=== PATIENT | female | born 1935 | race Caucasian/White ===

== ENCOUNTER 2016-10-25 23:44 | Emergency (ER) | payer MEDICARE ==
--- NOTE | 2016-10-25 23:45 | NUR ---
UPON BEING PLACED INBED; PT REFUSED TO BE TRIAGED, OBTAIN VS OR DO ANYTHING. STATES "I DONT WANT NO ONE TOUCH OR DO ANYTHING TO ME; CALL MY SON SO I CAN GO HOME". SON CALLED AND ON THE WAY. DR. LARSON NOTIFIED.
--- NOTE | 2016-10-26 00:04 | NUR ---
SON AT BEDSIDE WITH DR. LARSON TALKING TO PT; STILL REFUSES TO BE TOUCHED OR ANYTHING TO BE DONE.
--- NOTE | 2016-10-26 00:10 | NUR ---
SON STATES "I WANNA CALL AN AMBULANCE AND TAKE MY MOTHER OUT SINCE SHE DOESNT WANT TO BE EXAMINED BY THE DOCTOR". PT REFUSES AGAIN TO BE EXAMINED.
--- NOTE | 2016-10-26 00:17 | NUR ---
pt agrees to have VS taken, but continues to refuse any blood draw or CT scans performed and requesting to leave hospital. pt son at bedside continues to argue with pt, requesting pt to agree to physical exam by MD, but pt continues to refuse.
[2016-10-26 00:19] VITALS: BP 142/61
--- NOTE | 2016-10-26 00:25 | NUR ---
PT STILL REFUSES TO BE EXAMINED; STATES "I WANT MY SON TO TAKE ME OUT OF HERE BY AMBULANCE".
--- NOTE | 2016-10-26 00:49 | NUR ---
DR. LARSON AMD MYSELF AT BEDSIDE FOR THE [address] LARSON ASKING TO EXAMINE PT AND SHE STILL SAYS "NO; IF I HAVE TO WALK OUT OF HERE I WILL BUT I DONT WANT YOU TO EXAMINE ME". CAREGIVER AT BEDSIDE.
[2016-11-07] MEDS ORDERED: MAG HYDROX/AL HYDROX/SIMETH 30 ML UDC ONE (09:25)
[2016-11-07] MEDS ORDERED: LIDOCAINE VISCOUS 2% UD 15 ML UDC ONE (09:25)
== END 2016-10-26 00:52 | disposition left against medical advice (07) ==
LOC: ER 23:51
DX: R55 Syncope and collapse (principal)
CPT/HCPCS: A4606; Z7610

== ENCOUNTER 2019-04-23 07:41 | Inpatient (IN) | payer MEDICARE ==
[~2019-04-23] VITALS: Ht 170.2 cm; Wt 73.5 kg
[2019-04-23] VITALS (30 sets, daily range): BP systolic 112–186; BP diastolic 58–97
--- NOTE | 2019-04-23 07:44 | NUR ---
DR JUNIOR AT BEDSIDE FOR EVAL
--- NOTE | 2019-04-23 07:51 | NUR ---
CALLED CODE STROKE PER DR. JUNIOR
--- NOTE | 2019-04-23 07:55 | NUR ---
PT WAS PICKED UP FOR CT
[2019-04-23 07:58] LABS: BASOPHILS # (AUTO) 0.1 /CMM (0.0-0.2); BASOPHILS % (AUTO) 0.4 % (0.0-2.0); EOSINOPHILS % (AUTO) 0.6 % (0.0-6.0); HEMATOCRIT 45 % (33-45); HEMOGLOBIN 15.1 g/dL (11.5-14.8); LYMPHOCYTES # (AUTO) 2.8 /CMM (0.8-4.8); LYMPHOCYTES % (AUTO) 15.5 % (20.0-44.0); MEAN CORPUSCULAR HGB CONC 33 g/dl (31.0-36.0); MEAN CORPUSCULAR VOLUME 94 fL (82-100); MONOCYTES # (AUTO) 0.8 /CMM (0.1-1.30); MONOCYTES % (AUTO) 4.6 % (2.0-12.0); NEUTROPHILS # (AUTO) 14.4 /CMM (1.8-8.9); NEUTROPHILS % (AUTO) 78.9 % (43.0-81.0); PLATELET COUNT (AUTO) 303 /CMM (150-450); RED BLOOD CELL COUNT(AUTO) 4.83 MIL/uL (4.0-5.2); WHITE BLOOD COUNT (AUTO) 18.3 K/uL (4.3-11.0)
--- NOTE | 2019-04-23 08:01 | NUR ---
PATIENT BACK FROM CT
[2019-04-23 08:15] LABS: CALCIUM, SERUM 9.1 mg/dL (8.5-10.1); CARBON DIOXIDE 25 mmol/L (21-32); CHLORIDE 101 mmol/L (98-107); CREATININE 1.2 mg/dL (0.6-1.3); GLUCOSE 212 mg/dL (74-106); POTASSIUM 4.1 mmol/L (3.5-5.1); SODIUM SERUM 134 mmol/L (136-145); UREA NITROGEN, BLOOD 18 mg/dL (7-18)
--- NOTE | 2019-04-23 08:15 | NUR ---
CALLED [facility] [phone]
[2019-04-23 08:19] LABS: ALANINE AMINOTRANSFERASE 26 U/L (12-78); ALBUMIN 3.8 g/dL (3.4-5.0); ALKALINE PHOSPHATASE 110 U/L (46-116); ASPARTATE AMINOTRANSFERASE 20 U/L (15-37); BILIRUBIN,DIRECT 0.1 mg/dL (0.0-0.2); BILIRUBIN,TOTAL 0.3 mg/dL (0.2-1.0); TOTAL PROTEIN, SERUM 8.2 g/dL (6.4-8.2)
--- NOTE | 2019-04-23 08:25 | NUR ---
INTUBATION LEAD BY DR JUNIOR, RT AT BEDSIDE, RN AT BEDSIDE. ETOMIDATE 20MG IVP ALEX 20G SUCCINYL 100MG IPV ALEX 20G Addendum: 04/23/19 at 0925 by ANGELINA INTUBATION LED BY DR JUNIOR, RT AT BEDSIDE, RN AT BEDSIDE. ETOMIDATE 20MG IVP ALEX 20G SUCCINYL 100MG IPV ALEX 20G
--- NOTE | 2019-04-23 08:28 | NUR ---
CALL FROM DR LIPSCOMB: MASSIVE LEFT FRONTAL LOBE HEMORRHAGE AND 2.3 MIDLINE SHIFT
[2019-04-23] MEDS ORDERED: IV MANNITOL 20% 250 ML IV PRN (08:30)
--- NOTE | 2019-04-23 08:30 | NUR ---
RECEIVED VERBAL ORDER OF PROPOFOL 1000ML/100ML IVPB STARTED AT 5MCG/KG/MIN. CARRIED OUT. TITRATEM TO EFFECT
--- NOTE | 2019-04-23 08:32 | NUR ---
CALLED RADIOLOGIST [phone] BACK
--- NOTE | 2019-04-23 08:32 | NUR ---
MESSAGE RELAYED TO DR JUNIOR
[2019-04-23] MEDS ORDERED: PROPOFOL 100 ML ONE (08:33)
[2019-04-23] MEDS ORDERED: NICARDIPINE HCL 20 MG in IV D5W 192 ML IV PRN (09:00)
--- NOTE | 2019-04-23 09:00 | NUR ---
NOTED WITH MODERATE BLOOD TINGED SECRETION
--- NOTE | 2019-04-23 09:12 | NUR ---
COIL REPAIR TECHNICIAN AT BEDSIDE
--- NOTE | 2019-04-23 09:14 | NUR ---
[facility] [phone] EXT [phone]
[2019-04-23 09:15] LABS: CHOLESTEROL 170 mg/dL (<200); HDL CHOLESTEROL 64 mg/dL (40-60); LDL 90 mg/dL (0-99); TRIGLYCERIDES 90 mg/dL (30-150)
[2019-04-23] MEDS ORDERED: LORA0.5T PO (09:27)
[2019-04-23] MEDS ORDERED: LEVO100T9 PO (09:27)
[2019-04-23] MEDS ORDERED: ASPI81TA44 PO (09:27)
[2019-04-23] MEDS ORDERED: HYDR-4076 PO (09:27)
[2019-04-23] MEDS ORDERED: ROSU10TA2 PO (09:27)
[2019-04-23] MEDS ORDERED: LEVE500T20 PO (09:27)
[2019-04-23] MEDS ORDERED: VALS160T2 PO (09:27)
[2019-04-23] MEDS ORDERED: AMLO5TAB9 PO (09:28)
[2019-04-23] MEDS ORDERED: NICARDIPINE IN NACL, ISO-OSM 200 ML IV PRN (09:30)
[2019-04-23] MEDS ORDERED: MOME13HF4 INH (09:33)
--- NOTE | 2019-04-23 09:59 | NUR ---
REPORT GIVEN TO ARPI OF ICU
--- NOTE | 2019-04-23 10:45 | NUR ---
ICU/RN: ADMISSION NOTE RECEIVED REPORT FROM PIERCE, RN. PT TRANSPORTED TO 259 VIA GURNEY. RECEIVED PT INTUBATED 7.0 21 CM AT THE LIP. PT ON VENT SETTINGS ORDERED BY MD. PT COMATOSE, DOES NOT FOLLOW COMMANDS, DOES NOT REACT TO PAINFUL STIMULI. PT ON TELE, SINUS. CURRENTLY NPO. LEFT HAND AND RIGHT FA PIV PATENT AND INTACT. ALL NEEDS WILL BE ATTENDED TO, SAFETY MEASURES TAKEN, BED IN LOW POSITION, SIDE RAILS UP, CALL LIGHT WITHIN REACH. FAMILY AT BEDSIDE. CT SCAN DONE, RESULTS SHOW LARGE INTRACRANIAL BLEED. LAST WELL KNOWN TIME 0430.
[2019-04-23 11:15] LABS: ABG BASE EXCESS -3.2 mmol/L; ABG OXYGEN SATURATION 99.1 % (92.0-98.5); ABG PCO2 29.2 mmHg (35.0-45.0); ABG PH 7.444 (7.350-7.450); ABG PO2 251.7 mmHg (75.0-100.0); AaDO2 432.1 mmHg; COHb 0.4 % (0.5-1.5); MetHb 0.4 % (0.0-1.5); O2Hb 98.3 % (94.0-97.0); PEEP,BG 5 cm H2O; SITE, ABG Left Radial; VT, ABG 500 mL
[2019-04-23] MEDS ORDERED: SUCCINYLCHOLINE CHLORIDE 20 MG/ML VIAL IV ONE (12:49)
[2019-04-23] MEDS ORDERED: MORPHINE SULFATE INJ 2 MG/ML DISP.SYRIN IV PRN (13:00)
[2019-04-23] MEDS ORDERED: BLOOD SUGAR DIAGNOSTIC 1 EACH STRIP IN SCH (13:00)
[2019-04-23] MEDS ORDERED: ONDANSETRON HCL/PF 4 MG/2 ML VIAL IVP PRN (13:00)
--- NOTE | 2019-04-23 15:20 | NUR ---
ICU/RN: REPEAT CT SCAN DONE. DR. RAHMAN AT BEDSIDE. DISCUSSED RESULTS AND PROGNOSIS WITH FAMILY. ALL QUESTIONS ANSWERED. FAMILY SEEMS TO UNDERSTAND THE SEVERITY OF THE DX AND THE POOR PROGNOSIS.
[2019-04-23] MEDS: IV NS 0.9% 1,000 ML IV PRN (15:43)
--- NOTE | 2019-04-23 16:30 | NUR ---
ICU/RN: AT BEDSIDE, PT ASSESSED. NEW ORDERS RECEIVED FOR DECADRON AND MANNITOL. WILL FOLLOW THROUGH. MD DISCUSSED IMAGES AND PROGNOSIS OF PT. QUESTIONS AND CONCERNS ADDRESSED.
[2019-04-23] MEDS: IV MANNITOL 20% 250 ML IV SCH (18:25)
[2019-04-23] MEDS: DEXAMETHASONE SOD PHOSPHATE 4 MG/ML VIAL IV SCH (18:29)
[2019-04-23] MEDS: BLOOD SUGAR DIAGNOSTIC 1 EACH STRIP IN SCH (18:29)
--- NOTE | 2019-04-23 19:27 | NUR ---
ICU/RN: ENDING NOTES,AM BEDSIDE REPORT ENDORSED TO NIGHT NURSE. PT COMATOSE, DOES NOT OPEN EYES, OR FOLLOW COMMANDS. RANDOM MOVEMENTS NOTED. ON VENT SETTINGS ORDERED. PT NPO. UNABLE TO PERFORM SWALLOW EVAL, OT EVAL DUE TO PT MENTAL STATUS. DVT PUMPS IN PLACE. CARE GIVERS AT BEDSIDE. MANNITOL AND IVF INFUSING PER MD ORDER. ALL NEEDS ATTENDED TO, SAFETY MEASURES TAKEN, BED IN LOW POSITION, SIDE RAILS UP, CALL LIGHT WITHIN REACH. FAMILY (3 SONS OF PT) ARE DISCUSSING GOALS OF CARE AND WILL INFORM US.
--- NOTE | 2019-04-23 19:45 | NUR ---
ICU/PACKAGE LINER RECEIVED REPORT FROM DAY SHIFT NURSE. SEE FLOWSHEET FOR ASSESSMENT. THERE IS A SKIN ISSUES THAT THIS PT HAS, WHICH IS ADDRESSED ON FLOWSHEET ALONG WITH THE INTERVENTION. PT IS ORALLY INTUBATED, WHICH SHE IS TOLERATING. PT WAS TURNING AND REPOSITIONING FOR COMFORT AND CARE. WILL CONTINUE TO MONITOR THIS PT.
--- NOTE | 2019-04-23 19:59 | NUR ---
RECEIVED PT ORALLY INTUBATED WITH 7.0 ETT SECURED AT 20 CM AT THE LIP VIA ANCHOR FAST ON VENT WITH THE SETTINGS OF AC 22,500,80%, PEEP 5. PT TOLERATED VENT SETTINGS. SX DONE PRN. VENT ALARMS SET AND AUDIBLE. AMBU BAG AT BEDSIDE. VENT PLUGGED INTO RED OUTLET. WILL CONTINUE TO MONITOR .
--- NOTE | 2019-04-23 20:10 | NUR ---
ICU/PATROL DEPUTY SHERIFF THERE WAS UPWARDS TO FOUR PEOPLE IN THE ROOM, MADE THEM AWARE OF HOSPITAL POLICY WHICH IS POSTED OUTSIDE THE ICU. SIGN POSTED OUTSIDE SAYS THAT THERE IS 2 VISITORS, FOR 10 MINUTES AT A TIME. THERE IS NO OVER NIGHT STAYING. PT'S SON ABRUPTLY SAID HE KNEW SOMEONE WHO OWNED THE HOSPITAL AND HE WILL CALL TO GET SOME SORT OF CLEARANCE TO STAY. 2 OF THE 3 SON'S ARE DEMANDING, CHALLENGING TO NURSING STAFF. DIFFICULT TO MANAGE THEM AND THE CONSTANT BOMBARDMENT OF QUESTIONS. ENCOURAGE THE FAMILY TO GO HOME AND REST, DUE TO THE DIFFICULT DAYS AHEAD OF THEM IN THE DECISIONS OF MOTHERS'S HEALTH. ONE SON WENT HOME, HOWEVER 2 MORE REMAIN AT BESIDE ALONG WITH THEIR SIGNIFICANT OTHERS.
--- NOTE | 2019-04-23 22:05 | NUR ---
ICU/ENGINEER ASSISTANT PT WAS GIVEN PM CARE, ALONG WITH ORAL CARE. PT TOLERATED THIS WELL, REMAINS ON CURRENT VENT SETTINGS WITH SATURATION AT 100%. PT WAS TURNED AND REPOSITIONED FOR COMFORT AND CARE. WILL CONTINUE TO MONITOR THIS PT.
--- NOTE | 2019-04-23 23:30 | NUR ---
ICU/PHARMACIST RESPIRATORY THERAPIST DECREASED THE FIO2 TO 60 FROM 80. WILL CONTINUE TO MONITOR THIS PT AND HER SATURATION.
[2019-04-24] VITALS (61 sets, daily range): BP systolic 117–203; BP diastolic 52–106
[2019-04-24] MEDS: IV MANNITOL 20% 250 ML IV SCH ×5 (00:33→23:35)
--- NOTE | 2019-04-24 00:45 | NUR ---
ICU/NURSE ADVISOR NOTIFIED MACHINE OPERATIONS SUPERVISOR LIANA SARKAR ABOUT MIDNIGHT BLOOD SUGAR IS 185. THERE IS NO COVERAGE FOR THIS. AWAITING FOR ORDERS. BLOOD SUGAR HAS BEEN IN THE 180'S PT IS CURRENTLY GETTING DECADRON IV.
[2019-04-24] MEDS: BLOOD SUGAR DIAGNOSTIC 1 EACH STRIP IN SCH ×5 (01:29→23:42)
--- NOTE | 2019-04-24 02:17 | NUR ---
ICU/FOOD TRUCK CATERER LEFT NARE N/G TUBE PLACED AND VERIFIED BY MYSELF AND JOSE TOMAS.
[2019-04-24] MEDS: DEXAMETHASONE SOD PHOSPHATE 4 MG/ML VIAL IV SCH ×3 (02:21→17:37)
--- NOTE | 2019-04-24 03:00 | NUR ---
ICU/STORE CUSTODIAN RESPIRATORY THERAPIST DECREASED THE FIO2 TO 50 FROM 60. WILL CONTINUE TO MONITOR THIS PT AND HER SATURATION.
--- NOTE | 2019-04-24 04:10 | NUR ---
ICU/GROUP FITNESS ASSISTANT DEPARTMENT HEAD PT WAS GIVEN AM CARE, ALONG WITH ORAL CARE. PT TOLERATED THIS WELL, REMAINS ON CURRENT VENT SETTINGS WITH SATURATION AT 100%. PT WAS TURNED AND REPOSITIONED FOR COMFORT AND CARE. WILL CONTINUE TO MONITOR THIS PT.
[2019-04-24] MEDS: IV NS 0.9% 1,000 ML IV PRN ×2 (05:36→17:46)
--- NOTE | 2019-04-24 06:10 | NUR ---
ICU/CORE INSERTER PT'S MORNING BLOOD SUGAR IS 148. THERE IS NO COVERAGE FOR THIS PER MD ORDERS AND HOSPITAL PROTOCOL. PT WILL CONTINUE TO MONITOR THIS SUGARS ORDERS. PT WAS TURNED AND REPOSITIONED FOR COMFORT AND CARE.
--- NOTE | 2019-04-24 07:30 | NUR ---
ICU/RN: Pt received, orally intubated, tolerating current vent settings. Pt responds only to nail bed stimuli, negative pupil and plantar reflexes to R side with decerebrate posturing. L side with +4 pupils, sluggish reaction to light. Positive gag and cough reflex noted. IVF infusing well. FC draining clear yellow urine to gravity. L NGT auscultated + placement. Pending midline insertion. SR on monitor. Will cont to monitor pt.
[2019-04-24 08:25] LABS: ABG BASE EXCESS -1.3 mmol/L; ABG PCO2 28.2 mmHg (35.0-45.0); ABG PH 7.486 (7.350-7.450); ABG PO2 99.5 mmHg (75.0-100.0); AaDO2 225.3 mmHg; COHb 0.2 % (0.5-1.5); MetHb 0.4 % (0.0-1.5); O2Hb 96.4 % (94.0-97.0); SITE, ABG Right Radial
[2019-04-24] MEDS: PANTOPRAZOLE 40 MG VIAL IV SCH (09:24)
--- NOTE | 2019-04-24 10:30 | NUR ---
ICU/RN: Dr Caba rounds, informed of hypertension and Cardene drip, worsening neuro status and family wishes. New orders noted and carried out.
[2019-04-24 10:35] LABS: BASOPHILS # (AUTO) 0.1 /CMM (0.0-0.2); BASOPHILS % (AUTO) 0.3 % (0.0-2.0); HEMATOCRIT 42 % (33-45); HEMOGLOBIN 13.7 g/dL (11.5-14.8); LYMPHOCYTES # (AUTO) 1.1 /CMM (0.8-4.8); LYMPHOCYTES % (AUTO) 4.9 % (20.0-44.0); MEAN CORPUSCULAR HGB CONC 33 g/dl (31.0-36.0); MEAN CORPUSCULAR VOLUME 93 fL (82-100); MONOCYTES % (AUTO) 4.3 % (2.0-12.0); NEUTROPHILS # (AUTO) 20.3 /CMM (1.8-8.9); NEUTROPHILS % (AUTO) 90.5 % (43.0-81.0); PLATELET COUNT (AUTO) 257 /CMM (150-450); RED BLOOD CELL COUNT(AUTO) 4.49 MIL/uL (4.0-5.2); WHITE BLOOD COUNT (AUTO) 22.4 K/uL (4.3-11.0)
[2019-04-24 10:42] LABS: CALCIUM, SERUM 9.5 mg/dL (8.5-10.1); CARBON DIOXIDE 22 mmol/L (21-32); CHLORIDE 104 mmol/L (98-107); CREATININE 1.8 mg/dL (0.6-1.3); GLUCOSE 157 mg/dL (74-106); POTASSIUM 3.9 mmol/L (3.5-5.1); SODIUM SERUM 136 mmol/L (136-145); UREA NITROGEN, BLOOD 17 mg/dL (7-18)
[2019-04-24] MEDS: NICARDIPINE HCL 20 MG in IV D5W 192 ML IV PRN ×3 (10:52→23:57)
--- NOTE | 2019-04-24 14:00 | NUR ---
ICU/RN: Dr Dang at bedside; updated on neuro status. Decerebrate posturing on R side noted, responds only to painful stimuli. aware.
--- NOTE | 2019-04-24 15:15 | NUR ---
ICU/RN: Bed bath, hygienic care rendered, pt tolerated well.
--- NOTE | 2019-04-24 16:40 | NUR ---
ICU/RN: RN spoke to 2 other sons, Christopher and Finn per DPOA request regarding code status. All are in agreement to change code status to DNR. Dr Rosales Suárez notified. Family wishes to wait 24 hours prior to making a decision to withdraw or continue care per Dr Dang.
--- NOTE | 2019-04-24 19:15 | NUR ---
ICU/RN: 1800 dose of mannitol infusion complete. Remains on Cardene drip for BP control. Tolerating current vent settings. Safety measures in place. BRAYAN Odell requests immediate notification upon arrival of district attorney. Request relayed to CRN and oncoming RN. Bedside report given.
[2019-04-24 19:27] LABS: APPEARANCE,URINE CLEAR (CLEAR); BILIRUBIN,URINE NEGATIVE (NEGATIVE); BLOOD, URINE LARGE Ery/uL (NEGATIVE); COLOR,URINE YELLOW (YELLOW); KETONES,URINE NEGATIVE (NEGATIVE); LEUKOCYTE ESTERASE ,URINE NEGATIVE (NEGATIVE); NITRITE, URINE NEGATIVE (NEGATIVE); PROTEIN,URINE 30 mg/dl (NEGATIVE); UGLUCOSE NEGATIVE (NEGATIVE); UROBILINOGEN,URINE 0.2 EU/dL (0.2)
[2019-04-24 19:46] LABS: BACTERIA,URINE Few /HPF (None Seen); SQUAMOUS EPITHELIAL CELL,UR Rare /HPF (None Seen); WBC,URINE 0-2 /HPF (0-3)
--- NOTE | 2019-04-24 20:00 | NUR ---
PEACE OFFICER OPENING NOTES RECEIVED REPORT FROM ALONZO GARCIA. PATIENT COMATOSE W/ RESPONSE TO SOME TACTILE & PAINFUL STIMULI. PUPILS NON-REACTIVE @ THIS TIME W/ +4 NOTED ON LEFT PUPIL & +2 ON RIGHT PUPIL. ABNORMAL EXTENSION NOTED IN EXTREMITIES. BREATHING EVEN & UNLABORED W/ ETT IN PLACE & TOLERATING VENT SETTINGS. NO S/S OF RESPIRATORY DISTRESS NOTED. ON TELE W/ SINUS RHYTHM, HR 90S. LEFT HAND IV #20, RIGHT FORAERM IV #20 & RIGHT UPPER ARM MIDLINE ALL INTACT & PATENT W/ DRESSING CDI. CARDENE DRIP INFUSING WELL @ 5MG/HR & IVF NS @ 75 ML/HR. RIGHT NARE NG-TUBE PATENT & FLUSHING WELL. CLAMPED @ THIS TIME. DEJESUS CATH DRAINING YELLOW URINE. NO S/S OF PAIN OR DISCOMFORT @ THIS TIME. SAFETY MEASURES IN PLACE W/ SIDE RAILS UP & BED ALARM ON. HOB ELEVATED FOR ASPIRATION PRECAUTIONS & SEIZURE PRECAUTIONS MAINTAINED. WILL CONTINUE TO MONITOR CLOSELY.
--- NOTE | 2019-04-24 23:00 | NUR ---
SOIL SORT WORKER NOTES PATIENT SEEN & EXAMINED BY DR RAHMAN. UPDATED DR RAHMAN OF PATIENT'S CURRENT NEUROLOGICAL STATUS & FAMILY'S WISHES REGARDING CODE STATUS. ALSO RECEIVED NEW ORDER FOR IV KEPPRA 500MG. NEW ORDER NOTED & CARRIED OUT.
[2019-04-24] MEDS ORDERED: LEVETIRACETAM (500MG) 500 MG/5 ML VIAL IV ONE (23:07)
[2019-04-24] MEDS: LEVETIRACETAM (500MG) 500 MG in IV NS 0.9% 100 ML IV SCH (23:14)
[2019-04-24] MEDS ORDERED: NICARDIPINE IN DEXTROSE,ISO-OS 200 ML IV ONE ×2 (23:48→23:51)
[2019-04-25] VITALS (78 sets, daily range): BP systolic 118–173; BP diastolic 47–118
--- NOTE | 2019-04-25 | NUR ---
ANGULAR DEVELOPER NOTES NEUROLOGICAL ASSESSMENT W/ GCS = 4. NO SPONTANEOUS EYE OPENING, VERBAL RESPONSE AND MOTOR RESPONSE. PUPILS NON-REACTIVE W/ +4 ON LEFT PUPIL & +2 ON RIGHT PUPIL.
--- NOTE | 2019-04-25 00:30 | NUR ---
OLEO HASHER AND RENDERER NOTES BED BATH GIVEN TO PATIENT & TURNED & REPOSITIONED.
[2019-04-25] MEDS: DEXAMETHASONE SOD PHOSPHATE 4 MG/ML VIAL IV SCH ×3 (02:49→17:22)
[2019-04-25] MEDS: NICARDIPINE HCL 20 MG in IV D5W 192 ML IV PRN (03:22)
--- NOTE | 2019-04-25 04:22 | NUR ---
INTERNAL AFFAIRS INVESTIGATOR NOTES NEUROLOGICAL ASSESSMENT W/ GCS = 4. NO SPONTANEOUS EYE OPENING, VERBAL RESPONSE AND MOTOR RESPONSE. PUPILS DILATED W/ +3 ON LEFT PUPIL & +3 ON RIGHT PUPIL W/ SOME REACTION TO LIGHT.
[2019-04-25 04:46] LABS: BASOPHILS % (AUTO) 0.1 % (0.0-2.0); HEMATOCRIT 39 % (33-45); HEMOGLOBIN 12.9 g/dL (11.5-14.8); LYMPHOCYTES # (AUTO) 1.6 /CMM (0.8-4.8); LYMPHOCYTES % (AUTO) 6.2 % (20.0-44.0); MEAN CORPUSCULAR HGB CONC 33 g/dl (31.0-36.0); MEAN CORPUSCULAR VOLUME 95 fL (82-100); MONOCYTES # (AUTO) 1.4 /CMM (0.1-1.30); MONOCYTES % (AUTO) 5.6 % (2.0-12.0); NEUTROPHILS # (AUTO) 22.4 /CMM (1.8-8.9); NEUTROPHILS % (AUTO) 88.1 % (43.0-81.0); PLATELET COUNT (AUTO) 251 /CMM (150-450); RED BLOOD CELL COUNT(AUTO) 4.09 MIL/uL (4.0-5.2); WHITE BLOOD COUNT (AUTO) 25.4 K/uL (4.3-11.0)
[2019-04-25 04:54] LABS: CALCIUM, SERUM 8.7 mg/dL (8.5-10.1); CARBON DIOXIDE 19 mmol/L (21-32); CHLORIDE 108 mmol/L (98-107); CREATININE 2.2 mg/dL (0.6-1.3); GLUCOSE 137 mg/dL (74-106); MAGNESIUM 2.4 mg/dL (1.8-2.4); PHOSPHORUS 3.6 mg/dL (2.5-4.9); POTASSIUM 3.7 mmol/L (3.5-5.1); SODIUM SERUM 139 mmol/L (136-145); UREA NITROGEN, BLOOD 25 mg/dL (7-18)
[2019-04-25] MEDS: BLOOD SUGAR DIAGNOSTIC 1 EACH STRIP IN SCH ×4 (05:38→23:55)
[2019-04-25] MEDS: IV MANNITOL 20% 250 ML IV SCH ×3 (05:39→17:51)
--- NOTE | 2019-04-25 07:45 | NUR ---
ICU/RN: Pt received, no distress noted. Decerebrate posturing noted bilaterally, worsening on R side. +1 edema noted on bilat upper extremities. Medications infusing as ordered. Safety measures in place. Will cont to monitor pt.
[2019-04-25 08:17] LABS: ABG BASE EXCESS -8.1 mmol/L; ABG OXYGEN SATURATION 97.7 % (92.0-98.5); ABG PCO2 20.4 mmHg (35.0-45.0); ABG PH 7.448 (7.350-7.450); ABG PO2 123.6 mmHg (75.0-100.0); COHb 0.3 % (0.5-1.5); MetHb 0.6 % (0.0-1.5); O2Hb 96.8 % (94.0-97.0); SITE, ABG Right Radial
[2019-04-25] MEDS: IV NS 0.9% 1,000 ML IV PRN ×3 (08:28→23:22)
[2019-04-25] MEDS: PANTOPRAZOLE 40 MG VIAL IV SCH (08:35)
[2019-04-25] MEDS: LEVETIRACETAM (500MG) 500 MG in IV NS 0.9% 100 ML IV SCH ×2 (09:14→21:30)
[2019-04-25] MEDS ORDERED: Z GUARD REMEDY 2 OZ OINT TP PRN (09:30)
--- NOTE | 2019-04-25 10:00 | NUR ---
ICU/RN: Dr Caba at bedside; updated on pt status. Head CT not indicated at this time.
--- NOTE | 2019-04-25 14:00 | NUR ---
ICU/RN: Pt's willow analyst at bedside with BRAYAN Montalvo. Requesting to speak with MD to verify pt's prognosis, prior to proceeding with pt's wishes stated in her advance directive. Case discussed by willow analyst with Dr Chew, neurosurgical consult. Per BRAYAN Montalvo - he wishes for his brothers to be present prior to comfort care.
--- NOTE | 2019-04-25 15:00 | NUR ---
ICU/RN: Bed bath and oral care rendered. 1 small green BM noted. Oral care rendered, pt with drooling noted.
--- NOTE | 2019-04-25 19:00 | NUR ---
Received patient unresponsive, withdraws to pain, + cough when suctioned via OET.orally intubated to the ventilator on AC mode, not in any distress,not assisting the ventilator,saturating 100 %. pupils reactive, + corneal reflex of the left eye,but right eye minimal corneal reflex.With NGT clamped,placement checked by auscultation, + placement .Comfort care done,needs attended.Family at bedside.
--- NOTE | 2019-04-25 19:06 | NUR ---
ICU/RN: Bedside report given to NOC RN for SHAUNA.
--- NOTE | 2019-04-25 19:46 | NUR ---
RCVD PT ORALLY INTUBATED WITH ETT 7.0 SECURED @ 20CM LIPLINE. VENT PLUGGED INTO RED OUTLET, VENT ALARMS ON AND AUDIBLE. AMBU BAG @ BEDSIDE, AUTOMOTIVE BRAKE TECHNICIAN DONE , SX DONE PRN. NO RESPIRATORY DISTRESS NOTED AT THIS TIME. WILL CONTINUE TO MONITOR THE PT.
--- NOTE | 2019-04-25 22:00 | NUR ---
Status unchanged.BP within acceptable BP ( 160 and below ) Constantine peralta on standby for BP control.
[2019-04-26] VITALS (46 sets, daily range): BP systolic 141–187; BP diastolic 54–125
--- NOTE | 2019-04-26 | NUR ---
Remains stable,Neuro status unchanged. withdraws to pain,+ cough ,Light gag.+ corneal reflex on left ,minimal on the right.Comfort care done.
[2019-04-26] MEDS: IV MANNITOL 20% 250 ML IV SCH ×5 (00:25→23:43)
--- NOTE | 2019-04-26 02:00 | NUR ---
Noted to be more responsive to pain,+ cough.still with no purposeful movement ,but withdraws to deep pain.
[2019-04-26] MEDS: DEXAMETHASONE SOD PHOSPHATE 4 MG/ML VIAL IV SCH ×3 (02:24→17:25)
--- NOTE | 2019-04-26 04:00 | NUR ---
Am care done.Neuro status unchanged,still responds to deep pain, + cough,+left corneal reflex.
[2019-04-26 04:51] LABS: HEMATOCRIT 39 % (33-45); HEMOGLOBIN 12.5 g/dL (11.5-14.8); LYMPHOCYTES % (AUTO) 4.6 % (20.0-44.0); MEAN CORPUSCULAR HGB CONC 32 g/dl (31.0-36.0); MEAN CORPUSCULAR VOLUME 97 fL (82-100); MONOCYTES # (AUTO) 0.8 /CMM (0.1-1.30); MONOCYTES % (AUTO) 3.8 % (2.0-12.0); NEUTROPHILS # (AUTO) 19.8 /CMM (1.8-8.9); NEUTROPHILS % (AUTO) 91.6 % (43.0-81.0); PLATELET COUNT (AUTO) 219 /CMM (150-450); RED BLOOD CELL COUNT(AUTO) 4.02 MIL/uL (4.0-5.2); WHITE BLOOD COUNT (AUTO) 21.7 K/uL (4.3-11.0)
[2019-04-26 04:58] LABS: CALCIUM, SERUM 8.2 mg/dL (8.5-10.1); CARBON DIOXIDE 15 mmol/L (21-32); CHLORIDE 106 mmol/L (98-107); CREATININE 3.7 mg/dL (0.6-1.3); GLUCOSE 112 mg/dL (74-106); MAGNESIUM 2.1 mg/dL (1.8-2.4); PHOSPHORUS 4.4 mg/dL (2.5-4.9); POTASSIUM 4.3 mmol/L (3.5-5.1); SODIUM SERUM 135 mmol/L (136-145); UREA NITROGEN, BLOOD 45 mg/dL (7-18)
--- NOTE | 2019-04-26 06:00 | NUR ---
Status unchanged. no seizure episode. Still off Cardene drip ,maintaining BPS 160 and below. 0700 Report given to Michelle GARCIA
[2019-04-26] MEDS: BLOOD SUGAR DIAGNOSTIC 1 EACH STRIP IN SCH ×4 (06:04→23:41)
--- NOTE | 2019-04-26 07:30 | NUR ---
ICU/RN PT IS INTUBATED ON THE VENT AC MODE,FIO2-50%.SAT O2-100%.[id number].S/P STROKE,BRAIN CA, WITH MASSIVE INTRACRANIAL HARBORAGE.IV INFUSING ORDERED.NG TUBE CLAMPED.F/C IN PLACE,WITH VERY MINIMAL URINE OUTPUT.GENERALIZED EDEMA PRESENT.CONTINUE MONITORING.
[2019-04-26] MEDS: PANTOPRAZOLE 40 MG VIAL IV SCH (08:47)
[2019-04-26] MEDS: Z GUARD REMEDY 2 OZ OINT TP SCH (08:48)
[2019-04-26] MEDS: LEVETIRACETAM (500MG) 500 MG in IV NS 0.9% 100 ML IV SCH ×2 (10:22→20:54)
--- NOTE | 2019-04-26 12:10 | NUR ---
ALEXSANDER Note: Spoke with BRAYAN Montalvo regarding plan of care. Per son, "We would all like to be here when the tube is taken out. We would like to wait until after Sabbath." Updated family on current status, and pt kept clean and comfortable.
[2019-04-26] MEDS: IV NS 0.9% 1,000 ML IV PRN (13:38)
--- NOTE | 2019-04-26 16:15 | NUR ---
ALEXSANDER Note: ALEXSANDER had lengthy dw BRAYAN Montalvo who is requesting bioethics meeting. Dr Caba notified of patient request, son's phone number provided. Primary RN and nursing supervisor core drilling updated.
--- NOTE | 2019-04-26 18:00 | NUR ---
ICU/RN PM CARE PROVIDED.DUE MEDS ARE GIVEN ORDERED.PT IS ANURIC.BS-93.STILL WAITING FOR THE FAMILY TO MAKE DECISION ABOUT COMFORT CARE .MD NOTIFIED.CONTINUE MONITORING.
--- NOTE | 2019-04-26 18:24 | NUR ---
RT END OF THE SHIFT REPORT, PT. REC @0700 AM 83 Y OLD FEMALE NON RESPONSIVE ORALLY INTUBATED ETT # 7.0 @ 20 CM LIP LINE ON VENT WITH NOTED SETTINGS. EQUAL CHEST RISE NOTED B/S BILATERALLY RALES SUX'D FOR MINIMAL AMT OF WHITE THICK SECRETIONS, NO CHANGES T/O DAY. HME, GEOPHYSICIST DONE. VENT PLUGGED INTO RED OUT LET. AMBU BAG AT BEDSIDE. WILL CONTINUE TO MONITOR. REPORT WILL PASS TO PM SHIFT. Addendum: 04/26/19 at 1825 by MANJINDER MORRISSEY RT Amended: Links added.
--- NOTE | 2019-04-26 19:44 | NUR ---
STOCK RAISER. INITIAL ASSESSMENT. RECEIVED THE PT REST ON THE BED, ORALLY INTUBATED. PT IS COMA. SLIGHTLY GAG REFLEX PRESENT. SEIZURE PRECAUTION IN PLACE. ETT #7.0,AC 22, TV 500, FIO2 50%, PEEP 5. SAT 98. PANEL MACHINE OPERATOR SHOWING S [place]. FC PATENT. HOB ELEVATED. AFEBRILE. IV RT UPPER ARM MID LINE. IVF NS 75 ML/H. WILL CONTINUE TO MONITOR VITALS.
[2019-04-27] VITALS (24 sets, daily range): BP systolic 140–176; BP diastolic 32–103
[2019-04-27] MEDS: hydrALAZINE HCL IV 20 MG VIAL IV PRN ×2 (00:31→19:25)
[2019-04-27] MEDS: DEXAMETHASONE SOD PHOSPHATE 4 MG/ML VIAL IV SCH ×3 (01:18→18:01)
--- NOTE | 2019-04-27 01:19 | NUR ---
PATROL AGENT. PT BLOOD PRESSURE WAS 170/85. NOTIFIED FRUIT THINNER MELLO NEW ORDER RECEIVED.
[2019-04-27] MEDS: IV NS 0.9% 1,000 ML IV PRN (01:57)
--- NOTE | 2019-04-27 03:29 | NUR ---
VOLUNTEER SERVICES SPECIALIST. PT HAS FEVER 101. NOTIFIED MELLO NEW ORDER RECEIVED, WILL CONTINUE TO MONITOR
[2019-04-27] MEDS ORDERED: ACETAMINOPHEN 650 MG/SUPP.RECT RC PRN (03:30)
[2019-04-27] MEDS: BLOOD SUGAR DIAGNOSTIC 1 EACH STRIP IN SCH ×4 (05:28→23:40)
[2019-04-27] MEDS: IV MANNITOL 20% 250 ML IV SCH ×4 (05:28→23:21)
--- NOTE | 2019-04-27 07:13 | NUR ---
TRANSITIONS RN CARE COORDINATOR PER AYALA LIZAMA REQUESTED FOR LABS AND CHEST X RAY. TODAY NOTIFIED MELLO.
--- NOTE | 2019-04-27 07:20 | NUR ---
ASSEMBLY MACHINE TOOL SETTER NOTES RECEIVED BEDSIDE REPORT FROM ANNE RN. PT NON RESPONSIVE AT THIS TIME. ETT 01/13 @ THE LIP TOLERATING VENT SETTINGS WITH NO DISTRESS NOTED. NO EVIDENCE OF PAIN NOTED AT THIS TIME. SINUS ON THE MONITOR B/P WNL. NPO AT THIS TIME EXCEPT MEDS. DEJESUS CATH DRAINING CLEAR YELLOW URINE. ALEX MIDLINE RUNNING NS@ 75ML/HR AND RFA # 20 SALINE LOCKED.SAFETY AND ASPIRATION PRECAUTIONS IN PLACE BED IN LOW LOCKED POSITION WILL CONT TO MONITOR ACCORDINGLY
[2019-04-27] MEDS: PANTOPRAZOLE 40 MG VIAL IV SCH (08:11)
[2019-04-27] MEDS: Z GUARD REMEDY 2 OZ OINT TP SCH (08:12)
[2019-04-27 08:15] LABS: BASOPHILS % (AUTO) 0.1 % (0.0-2.0); HEMATOCRIT 38 % (33-45); HEMOGLOBIN 11.7 g/dL (11.5-14.8); LYMPHOCYTES # (AUTO) 1.1 /CMM (0.8-4.8); LYMPHOCYTES % (AUTO) 5.5 % (20.0-44.0); MEAN CORPUSCULAR HGB CONC 31 g/dl (31.0-36.0); MEAN CORPUSCULAR VOLUME 100 fL (82-100); MONOCYTES # (AUTO) 0.9 /CMM (0.1-1.30); MONOCYTES % (AUTO) 4.4 % (2.0-12.0); NEUTROPHILS # (AUTO) 18.3 /CMM (1.8-8.9); PLATELET COUNT (AUTO) 238 /CMM (150-450); RED BLOOD CELL COUNT(AUTO) 3.78 MIL/uL (4.0-5.2); WHITE BLOOD COUNT (AUTO) 20.4 K/uL (4.3-11.0)
[2019-04-27 08:31] LABS: BAND % (MANUAL) 4 % (0.0-5.0); LYMPHOCYTES % (MANUAL) 9 % (16-48); METAMYELOCYTES % 1 % (0-0); MONOCYTES % (MANUAL) 5 % (0-11.0); NEUTROPHILS % (MANUAL) 81 (42-76)
[2019-04-27 08:40] LABS: CARBON DIOXIDE 12 mmol/L (21-32); CHLORIDE 101 mmol/L (98-107); CREATININE 6.4 mg/dL (0.6-1.3); GLUCOSE 81 mg/dL (74-106); POTASSIUM 4.8 mmol/L (3.5-5.1); SODIUM SERUM 129 mmol/L (136-145); UREA NITROGEN, BLOOD 72 mg/dL (7-18)
[2019-04-27] MEDS: LEVETIRACETAM (500MG) 500 MG in IV NS 0.9% 100 ML IV SCH ×2 (09:11→20:01)
--- NOTE | 2019-04-27 11:00 | NUR ---
PT SON YUMIKO AND STUCCO PLASTERER AT BEDSIDE. FAMILY STILL AWAITING FOR AGREEMENT FOR PLAN OF CARE OF PATIENT
--- NOTE | 2019-04-27 11:25 | NUR ---
MESSAGE SENT TO DR GEM HARRIS . PATIENT BS 67 MG/DL NO ORDERS FOR DEXTROSE. ASKED TO CHANGE IVF NS TO D5NS @75 ML/HR PATIENT SODIUM 129.
[2019-04-27] MEDS: IV D5/ 0.9% NACL 1,000 ML IV PRN (11:41)
--- NOTE | 2019-04-27 11:51 | NUR ---
ORDER OBTAINED TO D/C NS AND START D5NS @ 75 ML/HR
--- NOTE | 2019-04-27 15:15 | NUR ---
BEDBATH GIVEN ORAL CARE RENDERED. LINES CHANGED REPOSITIONED FOR COMFORT
--- NOTE | 2019-04-27 18:20 | NUR ---
SPOKE WITH SON MG FAMILY HAS COME TO AN AGREEMENT TO EXTUBATE PATIENT IN THE MORNING. WOULD LIKE TO BE AT BEDSIDE
--- NOTE | 2019-04-27 19:10 | NUR ---
REPORT ENDORSED TO NOC
--- NOTE | 2019-04-27 19:30 | NUR ---
WATER CARTER INITIAL HSIFT NOTES RECEIVED PATIENT FROM DAY SHIFT NURSE. PATIENT IN BED, ASLEEP, EYES CLOSED, REACTS ONLY TO PAINFUL STIMULI. TELEMETRY MONITORING SHOWS SINUS RHYTHM. HR 62 BPM AT THIS TIME. ETT TO MECHANICAL VENTILATION, TOELRATING WELL, VENT SETTINGS: AC22, TV 500, FIO2 40%, PEEP +5. NO RESPIRATORY DISTRESS NOTED. LEFT NARE NGT PATENT AND INTACT, CLAMPED, AUSCULTATED FOR PLACEMENT VERIFICATION. ALEX MIDLINE PATENT AND INTACT, ONGOING IV FLUIDS ORDERED. PADDED SIDE-RAILS FOR SEIZURE PRECAUTIONS. WILL CONTINUE TO CLOSELY MONITOR
--- NOTE | 2019-04-27 21:35 | NUR ---
DIALYSIS TECH NOTES PATIENT'S SON ALDA AND CAREGIVER AT BEDSIDE. UPDATE GIVEN, ALL QUESTIONS ANSWERED ABLE, WITH VERBALIZATION OF UNDERSTANDING FROM FAMILY MEMBERS. WILL CONTINUE TO CLOSELY MONITOR.
[2019-04-28] VITALS (17 sets, daily range): BP systolic 88–164; BP diastolic 40–93
[2019-04-28] MEDS: DEXAMETHASONE SOD PHOSPHATE 4 MG/ML VIAL IV SCH ×2 (01:19→09:03)
[2019-04-28] MEDS: IV D5/ 0.9% NACL 1,000 ML IV PRN (01:19)
[2019-04-28 04:19] LABS: BASOPHILS % (AUTO) 0.1 % (0.0-2.0); HEMATOCRIT 40 % (33-45); LYMPHOCYTES # (AUTO) 1.2 /CMM (0.8-4.8); LYMPHOCYTES % (AUTO) 5.3 % (20.0-44.0); MEAN CORPUSCULAR HGB CONC 30 g/dl (31.0-36.0); MEAN CORPUSCULAR VOLUME 104 fL (82-100); MONOCYTES # (AUTO) 0.8 /CMM (0.1-1.30); MONOCYTES % (AUTO) 3.6 % (2.0-12.0); NEUTROPHILS # (AUTO) 20.6 /CMM (1.8-8.9); PLATELET COUNT (AUTO) 220 /CMM (150-450); RED BLOOD CELL COUNT(AUTO) 3.85 MIL/uL (4.0-5.2); WHITE BLOOD COUNT (AUTO) 22.6 K/uL (4.3-11.0)
[2019-04-28 04:28] LABS: CALCIUM, SERUM 8.1 mg/dL (8.5-10.1); CARBON DIOXIDE 12 mmol/L (21-32); CHLORIDE 100 mmol/L (98-107); GLUCOSE 138 mg/dL (74-106); MAGNESIUM 2.2 mg/dL (1.8-2.4); POTASSIUM 4.3 mmol/L (3.5-5.1); SODIUM SERUM 128 mmol/L (136-145)
[2019-04-28 04:36] LABS: CREATININE 7.5 mg/dL (0.6-1.3); UREA NITROGEN, BLOOD 85 mg/dL (7-18)
[2019-04-28] MEDS: IV MANNITOL 20% 250 ML IV SCH ×2 (05:06→11:15)
[2019-04-28] MEDS: BLOOD SUGAR DIAGNOSTIC 1 EACH STRIP IN SCH ×2 (05:06→11:21)
--- NOTE | 2019-04-28 06:44 | NUR ---
HADOOP ENGINEER NOTES BUN 85, CREA 7.5, WORSENING. MELLO CORTES NOTIFIED, NO NEW ORDERS RECEIVED
--- NOTE | 2019-04-28 07:00 | NUR ---
RESEARCH CHEF CLOSING NOTES PATIENT LAYING IN BED, NO ACUTE DISTRESS NOTED AT THIS. CONTINUES WITH NYSTAGMUS, REMAINS ORALLY INTUBATED ON MECHANICAL VENTILATION, PENDING BIOETHICS MEETING TODAY TO DISCUSS PLAN OF CARE. PATIENT ENDORSED TO THE AM SHIFT NURSE FOR CONTINUITY OF CARE
--- NOTE | 2019-04-28 07:15 | NUR ---
RN INITIAL NOTES RECEIVED PT INTUBATED, ON VENT. NO RESPIRATORY DISTRESS NOTED. NO SOB NOTED. HOB ELEVATED. NO SIGNS OF PAIN NOTED. PT ON MONITOR, HR ON LOW 40S. ALEX MIDLINE IN PLACE. IVF INFUSING. FC IN PLACE. NO HEMATURIA NOTED. REPOSITIONED. BLE ELEVATED. POSSIBLE TERMINAL EXTUBATION TODAY. AWAITING FOR FAMILY TO DECIDE. WILL MONITOR.
[2019-04-28] MEDS: LEVETIRACETAM (500MG) 500 MG in IV NS 0.9% 100 ML IV SCH (08:41)
[2019-04-28] MEDS: PANTOPRAZOLE 40 MG VIAL IV SCH (08:41)
[2019-04-28] MEDS: Z GUARD REMEDY 2 OZ OINT TP SCH (08:42)
--- NOTE | 2019-04-28 11:54 | NUR ---
RN NOTES 2 SONS AT BEDSIDE, DECIDED TO PROCEED WITH TERMINAL EXTUBATION AND COMFORT CARE. CALLED DR GEM OCAMPO. ORDERS MADE AND CARRIED OUT. DISCUSSED WITH SONS AT BEDSIDE. Addendum: 04/28/19 at 1310 by JAYE DAMON RN ... CORRECTION 3 SONS AT BEDSIDE, ALDA HOLLIDAY AND UMBERTO
[2019-04-28] MEDS ORDERED: MORPHINE SULFATE/PF 30 MG in IV NS 0.9% 27 ML, PCA TOTAL VOLUME 1 BAG IV PRN ×3 (12:00)
[2019-04-28] MEDS ORDERED: LORAZEPAM INJ 2 MG/ML VIAL IV PRN (12:00)
[2019-04-28] MEDS ORDERED: KEY,NONCONTROL,TO KEEP IN PYXI 1 EA MC ONE (12:37)
--- NOTE | 2019-04-28 13:47 | NUR ---
RN NOTES PT EXTUBATED. PLACED ON NC VIA 02. MORPHINE DRIP ONGOING FOR COMFORT. FAMILY AT BEDSIDE.
[2019-04-28] MEDS ORDERED: DC PROPOFOL WHEN EXTUBATED XX PRN (14:00)
--- NOTE | 2019-04-28 17:00 | NUR ---
RN NOTES PT NOTED WITH NO PALPABLE PULSE. BP UNAPPRECIATED. NO RISE AND FALL OF CHEST NOTED. PT PRONOUNCED BY JOSE MOORE AND JOSE MONTAGUE AT 1650. DR GEM OCAMPO NOTIFIED. FAMILY AT BEDSIDE. CALLED [facility], SPOKE WITH JOSE. ALL PERTINENT INFO GIVEN. REFERENCE #[id number]. MORTUARY OF CHOICE, [facility], NOTIFIED BY MG (SON).
--- NOTE | 2019-04-28 18:34 | NUR ---
RN NOTES 1819 [facility] CALLED. SPOKE WITH ALESHA JAIN. ALL PERTINENT INFORMATION GIVEN. REFERENCE #[id number] [facility] DIRECTIVE FAXED TO #[phone]. 1834 P/U BY [facility]. MG (SON) AT BEDSIDE
== END 2019-04-28 16:50 | disposition expired | DRG 64 ==
LOC: ER 07:42 → ICU 09:50
PROC: 5A1955Z Respiratory Ventilation, Greater than 96 Consecutive Hours (ICD-10-PCS; principal; 2019-04-23)
PROC: 0BH17EZ Insertion of Endotracheal Airway into Trachea, Via Natural or Artificial Opening (ICD-10-PCS; 2019-04-23)
PROC: 05H533Z Insertion of Infusion Device into Right Subclavian Vein, Percutaneous Approach (ICD-10-PCS; 2019-04-24)
DX: I61.1 Nontraumatic intracerebral hemorrhage in hemisphere, cortical (principal); G93.5 Compression of brain; G93.6 Cerebral edema; N17.0 Acute kidney failure with tubular necrosis; J96.00 Acute respiratory failure, unspecified whether with hypoxia or hypercapnia; C71.9 Malignant neoplasm of brain, unspecified; G91.1 Obstructive hydrocephalus; I16.9 Hypertensive crisis, unspecified; Z51.5 Encounter for palliative care; Z66 Do not resuscitate; G40.909 Epilepsy, unspecified, not intractable, without status epilepticus; I10 Essential (primary) hypertension; D72.829 Elevated white blood cell count, unspecified; Z86.73 Personal history of transient ischemic attack (TIA), and cerebral infarction without residual deficits; Z90.5 Acquired absence of kidney; G93.2 Benign intracranial hypertension
CPT/HCPCS: 31720; 36415; 36569; 36600; 70450-TC; 71045-TC; 80048-TC; 80061-TC; 80076-TC; 81000-TC; 82803-TC; 82962-TC; 83605-TC; 83735-TC; 84100-TC; 84484-TC; 85025-TC; 85730-TC; 86850-TC; 87081-TC; 87086-TC; 94002-TC; 94003-TC; 94760-TC; 94799-TC; C9113; G0378; J0330; J0360; J1100; J1953; J2060; J2150; J2274; J3490; J7030; J7042; J7050; J7060